=== PATIENT | female | born 1990 | race Caucasian/White ===

== ENCOUNTER 2021-12-08 14:24 | Emergency (ER) | payer MEDICAID, SELFPAY ==
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
[2021-12-08 14:41] VITALS: BP 120/86; BP 98/59; PULSE 102; PULSE 91; TEMP 36.7; O2SAT 96; O2SAT 98; BMI 21.6
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
[2021-12-08] MEDS: Acetaminophen 325 MG TABLET 975 MG PO (15:06)
[2021-12-08] MEDS: Cyclobenzaprine HCl 5 MG TABLET PO (15:06)
[2021-12-08 15:57] VITALS: BP 105/66; PULSE 81; RESP 14; TEMP 36.6; O2SAT 96
== END 2021-12-08 17:13 | disposition home or self-care (01) ==
PROVIDERS: Emergency Provider Emergency Medicine
DX: S06.0XAA Concussion with loss of consciousness status unknown, initial encounter (principal); R51.9 Headache, unspecified; M54.2 Cervicalgia; M54.50 Low back pain, unspecified; Y04.2XXA Assault by strike against or bumped into by another person, initial encounter; Y93.9 Activity, unspecified; Y92.59 Other trade areas as the place of occurrence of the external cause; Y99.9 Unspecified external cause status; Z79.899 Other long term (current) drug therapy
CPT/HCPCS: 70450; 70486; 72100; 72125; 99284